=== PATIENT | female | born 1935 | race Caucasian/White ===

== ENCOUNTER 2018-12-24 14:09 | Emergency (ER) ==
[2018-12-24 14:21] VITALS: BP 119/62; TEMP 98.2; BMI 37.5
--- NOTE | 2018-12-24 15:04 | CT ---
EXAM: CT Head HISTORY: Dizzy, generalized weakness COMPARISON: 05/31/2017 TECHNIQUE: CT head performed without contrast FINDINGS: There is no mass effect, midline shift, or intracranial hemmorhage. Jones white differenti ation is preserved. There is no extra-axial collection. The ventricles, sulci, and basal cisterns a re patent and symmetric. Chronic right cerebellar encephalomalacia. There is chronic ischemic disea se of the white matter and cerebral volume loss. There is no depressed calvarial fracture. The mast oid air cells are clear. The visualized paranasal sinuses are clear. There are intracranial atherosc lerotic calcifications. IMPRESSION: 1. No acute intracranial abnormality. 2. Chronic right cerebellar encephalomalacia/infarction. 3. 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
--- NOTE | 2018-12-24 15:18 | DI ---
EXAM: Chest one view HISTORY: Cough COMPARISON: 05/31/2017 TECHNIQUE: Single view of the chest was performed FINDINGS: The lungs are clear. There is no pleural effusion or pneumothorax. The heart is enlarged inch a in size. The mediastinal contour is unchanged. There are no acute abnormalities of the bone s. Calcifications adjacent to the right and left shoulder are larger on the right where the measure 3 .5 cm. Moderate hiatal hernia suggested. IMPRESSION: 1. Cardiomegaly. No acute cardiopulmonary process. 2. Moderate hiatal hernia suggested.
--- NOTE | 2018-12-24 15:46 | ED.PDOC ---
General ED Provider: Dr. MAE YEH Chief Complaint: Dizziness Stated Complaint: DIZZINESS SUDDEN ONSET Time Seen by Physician: 14:14 (SEE WITH NURSING STAFF) Mode of Arrival: Walk-In Information Source: Patient Exam Limitations: No limitations Primary Care Provider: KORI BLUM Nursing and Triage Documentation Reviewed and Agree: Yes Does patient meet sepsis criteria?: No System Inflammatory Response Syndrome: Not Applicable Sepsis Protocol: For patient's 13 years and over: Temp is 96.8 and below OR 101 and greater Pulse >90 BPM Resp >20/minute Acutely Altered Mental Status Are patient's symptoms suggestive of a new infection, such as: -Pneumonia -Skin, Soft Tissue -Endocarditis -UTI -Bone, Joint Infection -Implantable Device -Acute Abdominal Infection -Wound Infection -Meningitis -Blood Stream Catheter Infection -Unknown Neurological Complaint Exam - Dizziness Complaint/Exam Last Known Well: 1 HR P.T.A Onset: Sudden Duration: SECONDS Symptoms Are: Resolved Timing: Intermittent Episodes Lasting: Seconds Initial Severity: Mild Current Severity: None Character: Reports: Lightheaded, Dizzy Aggravating: Reports: None Alleviating: Reports: Rest, Lying down Associated Signs and Symptoms: Denies: Nausea, Vomiting, Diaphoresis, Tinnitus, Chest pain, Short of air, Palpitations, Unsteady gait, GI blood loss, Visual changes, Decreased oral intake, Change in medication, Change in diet, OTC meds, Loss of balance Related History: Similar episode Cardiac Risk Factors: Reports: Hypertension CVA Risk Factors: Reports: Hypertension Related Surgical History: Reports: None JVD Present: No Carotid Bruit Present: No Glascow Coma Scale (see protocol): 15 Nystagmus Present: No Gag Reflex Present: Yes Meningeal Signs Positive: No Focal Weakness: Present: None Focal Sensory Loss: Present: None Gait: Normal [id number]: Normal Findings Romberg Test Positive: No Babinski Sign: Negative Right, Negative Left Differential Diagnoses: Hypovolemia, Metabolic abnormalities, Vasovagal reaction Quality Indicators for Cardiac Chest Pain: EKG in 10min. Quality Indicators for AMI: EKG in 10min. Quality Indicator For Non-Traumatic Chest Pain/Syncope: EKG Performed Review of Systems - Review Of Systems Constitutional: Reports: No symptoms Eyes: Reports: No symptoms Ears, Nose, Mouth, Throat: Reports: No symptoms Respiratory: Reports: No symptoms Cardiac: Reports: No symptoms GI: Reports: No symptoms : Reports: No symptoms Musculoskeletal: Reports: No symptoms Skin: Reports: No symptoms Neurological: Reports: Other (DIZZINESS) Endocrine: Reports: No symptoms Hematologic/Lymphatic: Reports: No symptoms All Other Systems: Reviewed and Negative Past Medical History - Past Medical History Previously Healthy: No Endocrine: Reports: Hypothyroid Cardiovascular: Reports: Hypertension Respiratory: Reports: None Hematological: Reports: None Gastrointestinal: Reports: None Genitourinary: Reports: None Neuro/Psych: Reports: None Musculoskeletal: Reports: None Cancer: Reports: None Last Menstrual Period: NA - Surgical History General Surgical History: Reports: None - Family History Family History: Reports: None - Social History Smoking Status: Never smoker Hx Substance Use: No Alcohol Screening: Occasionally - Immunizations Tetanus Shot up to Date: No Physical Exam - Physical Exam Appearance: Well-appearing, No pain distress, Well-nourished Eyes: TAD, EOMI, Conjunctiva clear ENT: Ears normal, Nose normal, Oropharynx normal Respiratory: Airway patent, Breath sounds clear, Breath sounds equal, Respirations nonlabored Cardiovascular: RRR, Pulses normal, No rub, No murmur GI/: Soft, Nontender, No masses, Bowel sounds normal, No Organomegaly Musculoskeletal: Normal strength, ROM intact, No edema, No calf tenderness Skin: Warm, Dry, Normal color Neurological: Sensation intact, Motor intact, Reflexes intact, Cranial nerves intact, Alert, Oriented Psychiatric: Affect appropriate, Mood appropriate - NIH Stroke Scale 1a. Level of Consciousness: 0=Alert and keenly responsive 1b. Level of Consciousness Questions: 0=Answers correctly to two questions 1c. Level of Consciousness Commands: 0=Performs two tasks correctly 2. Best Gaze: 0=Normal 3. Visual: 0=No visual loss 4. Facial Palsy: 0=Normal 5a. Motor Left Arm: 0=No drift,arm holds 90 degrees for 10 sec., leg 30 degrees for 5 sec. 5b. Motor Right Arm: 0=No drift,arm holds 90 degrees for 10 sec., leg 30 degrees for 5 sec. 6a. Motor Left Le=No drift,arm holds 90 degrees for 10 sec., leg 30 degrees for 5 sec. 6b. Motor Right Le=No drift,arm holds 90 degrees for 10 sec., leg 30 degrees for 5 sec. 7. Limb Ataxia: 0=Absent 10. Dysarthria: 0=Normal 11. Extincion and Inattention: 0=Normal Stroke Scale Total: 0 Interpretation - Radiology Interpretation Radiology Results: No acute changes Exam Interpreted: CT Scan - [employer] Rate: Normal Rhythm: Sinus Ectopy: None Re-Evaluation - Re-Evaluation Time of Re-Evaluation: 15:00 Status: Improved Vital Signs Stable: Yes Pain Level: 0 Appearance: NAD Lungs: Clear Skin: Warm and Dry Neuro: Alert and Oriented X3 CV: RRR - Re-Evaluation Time of Re-Evaluation: 15:46 Status: Improved Vital Signs Stable: Yes Pain Level: 0 Appearance: NAD Skin: Warm and Dry Neuro: Alert and Oriented X3 CV: RRR Physician Notification - Case Discussed Physician Notified: PMD Time of Notification: 15:47 (D/C HOME WILL FOLLOW PT OUT PT) Critical Care Note - Critical Care Note Total Time (mins): 0 Course - Course Hematology/Chemistry: 12/24/18 14:25 12/24/18 14:25 Orders, Labs, Meds: Lab Review 12/24/18 12/24/18 12/24/18 14:25 14:25 14:25 WBC 5.55 RBC 3.87 L Hgb 10.9 L Hct 35.1 L MCV 90.7 MCH 28.2 MCHC 31.1 L RDW Coeff of Mary Ellen 13.9 Plt Count 237 Immature Gran % (Auto) 0.4 Neut % (Auto) 68.8 Lymph % (Auto) 19.1 Tama % (Auto) 8.3 Eos % (Auto) 2.3 Baso % (Auto) 1.1 Immature Gran # (Auto) 0.0 Neut # (Auto) 3.8 Lymph # (Auto) 1.1 Tama # (Auto) 0.5 Eos # (Auto) 0.1 Baso # (Auto) 0.1 Sodium 137.9 Potassium 4.13 Chloride 103.1 Carbon Dioxide 29.2 Anion Gap 9.73 BUN 23.9 H Creatinine 1.75 H Estimated GFR (MDRD) 28.00 BUN/Creatinine Ratio 13.65 Glucose 117.3 H Calcium 8.75 Total Bilirubin 0.64 AST 19.0 ALT 11.4 Alkaline Phosphatase 113.9 Total Creatine Kinase 65.2 Troponin I 0.014 Total Protein 7.09 Albumin 4.02 Globulin 3.07 Albumin/Globulin Ratio 1.30 TSH 12.100 H Free T4 1.43 Orders Category Date Time Status EKG-(ED ONLY) Stat CARDIO 12/24/18 14:14 Completed CBC W/ AUTO DIFF Stat LAB 12/24/18 14:25 Completed COMPREHENSIVE METABOLIC PANEL Stat LAB 12/24/18 14:25 Completed CREATINE KINASE Stat LAB 12/24/18 14:25 Completed FREE T4 (FREE THYROXINE) Stat LAB 12/24/18 14:25 Completed THYROID STIMULATING HORMONE Stat LAB 12/24/18 14:25 Completed TROPONIN I Stat LAB 12/24/18 14:25 Completed URINALYSIS C & S IF INDICATED Stat LAB 12/24/18 14:14 Uncollected CHEST, 1V AP ONLY Stat RADS 12/24/18 14:[address] HEAD W/O CONTRAST Stat RADS 12/24/18 14:14 Completed Vital Signs: Temp Pulse Resp BP Pulse Ox 12/24/18 14:09 98.2 F 50 L 18 119/62 97 Departure - Departure Time of Disposition: 15:48 Disposition: HOME SELF-CARE Discharge Problem: Dizziness, Renal failure Instructions: Chronic Kidney Disease (ED), Low-Sodium Diet (ED), End Stage Kidney Disease (ED) Condition: Good Pt referred to PMD for follow-up: Yes IPMP verified?: No Additional Instructions: Please call your Family Physician as soon as possible to schedule a follow-up appointment. Allergies/Adverse Reactions: Allergies No Known Allergies Allergy (Unverified 12/24/18 14:16) Home Medications: Ambulatory Orders Atorvastatin Calcium 20 mg PO DAILY 12/24/18 Carvedilol 6.25 mg PO BID 12/24/18 Ergocalciferol (Vitamin D2) [Vitamin D2] 50,000 unit PO DAILY 12/24/18 Furosemide 40 mg PO DAILY 12/24/18 Levothyroxine Sodium [Synthroid] 100 mcg PO QDAC 12/24/18 Losartan Potassium 100 mg PO DAILY 12/24/18 Potassium Chloride [K-Dur] 20 meq PO ONCE 12/24/18 Rivaroxaban [Xarelto] 20 mg PO DAILY 12/24/18
== END 2018-12-24 16:31 | disposition home or self-care (01) ==
LOC: ED 14:09
DX: R42 Dizziness and giddiness (principal); N19 Unspecified kidney failure; I10 Essential (primary) hypertension; E03.9 Hypothyroidism, unspecified; Z79.899 Other long term (current) drug therapy
CPT/HCPCS: 36415; 80053; 82550; 84439; 84443; 84484; 85025; 93005; 93010; 99283